=== PATIENT | female | born 1995 | race Caucasian/White ===

== ENCOUNTER → 2020-09-20 | Outpatient (CLI) | payer OTHER | LOC: KOH-I 08:30 | DX: R10.11 Right upper quadrant pain (principal) | CPT/HCPCS: 76705 ==

== ENCOUNTER → 2020-11-02 | Outpatient (CLI) | payer OTHER | LOC: KOH-I 12:12 | DX: M54.5 Low back pain (principal) | CPT/HCPCS: 72100 ==